=== PATIENT | male | born 1955 | race Caucasian/White ===

== ENCOUNTER 2017-12-07 14:32 | Emergency (ER) | payer OTHER ==
[2017-12-07 14:58] VITALS: BP 128/88; PULSE 75; RESP 18; TEMP 98
[2017-12-07] MEDS ORDERED: BACITRACIN 500 UNIT/GM OINT 28.4 GM TUBE TOPICAL ONE (16:22)
--- NOTE | 2017-12-07 16:50 | XR ---
EXAMINATION TYPE: XR shoulder complete 3 views RT, XR forearm 2 views RT, XR elbow complete 3 views R T DATE OF EXAM: 12/07/2017 COMPARISON: NONE HISTORY: 62-year-old male with pain after fall off ladder today FINDINGS: Right shoulder: Moderate degenerative joint space narrowing and marginal spurring at the acromial clavicular joint. T here is loss of the subacromial space with bony abutment of the humeral head with the undersurface of the acromion. Mild degenerative spurring at the glenohumeral joint. No acute fracture, subluxation, or dislocation seen. Right elbow: No elbow joint effusion. There is some posterior soft tissue swelling. 9 mm ossific density posterior olecranon. Otherwise, no acute fracture, subluxation, dislocation. Right forearm: No acute fracture of the more mid to distal radius or ulna. Wrist articulation appears grossly intact . There may be some dorsal sided soft tissue swelling. IMPRESSION: 1. Right shoulder: Moderate AC joint OA. Chronic full-thickness rotator cuff tear. No acute osseous a bnormality seen. 2. Right elbow: 9 mm bone fragment posterior elbow suspected to represent a chronically fragmented sp ur. Correlate for any pinpoint tenderness here to exclude an acutely fractured enthesophyte. No elbow joint effusion or other acute osseous abnormality seen. 3. Right forearm: No additional acute osseous abnormality seen.
[2017-12-07] MEDS ORDERED: DIPH,PERTUS(ACELL)TETVAC-LF 0.5 ML VIAL IM ONE (17:13)
--- NOTE | 2017-12-07 17:39 | ED ---
Fall HPI - General Chief Complaint: Fall Stated Complaint: [facility]HS/ Arm Injury Time Seen by Provider: 12/07/17 15:09 Source: patient Mode of arrival: ambulatory - History of Present Illness Initial Comments: This 62-year-old male with history of previous DVT who presents today for chief complaint of fall. Patient states that earlier today at work when he was coming down a ladder about 3 rungs the bottom when he misstepped and fell forward on the ladder hitting right forarm, he then fell to the ground onto this right area. He denies chest pain, dizziness, palpitation prior to the fall stating it was mechanical in nature. Pt immediately noticed a superficial laceration to the right ventral forearm as well as pain in the right shoulder, forearm and elbow. Pt ws told to present to the emergency department by his company. [employer]. Patient denies numbness, tingling, paresthesias of the upper extremities bilaterally, loss of sensation of the upper extremities bilaterally, loss of consciousness, trauma to the head or any other extremity, dislocation of right shoulder. In addition patient denies any recent fever, chills, shortness of breath, chest pain, back pain, abdominal pain , nausea or vomiting, numbness or tingling, dysuria or hematuria, constipation or diarrhea, headaches or visual changes, or any other complaints. Pt cannot recall last TDaP. - Related Data Home Medications Medication Instructions Recorded Confirmed No Known Home Medications 12/07/17 12/07/17 Allergies Allergy/AdvReac Type Severity Reaction Status Date / Time No Known Allergies Allergy Verified 12/07/17 15:09 Review of Systems ROS Statement: Those systems with pertinent positive or pertinent negative responses have been documented in the HPI. ROS Other: All systems not noted in ROS Statement are negative. Constitutional: Denies: fever, chills Eyes: Denies: eye pain ENT: Denies: ear pain, throat pain Respiratory: Denies: cough, dyspnea Cardiovascular: Denies: chest pain, palpitations, dyspnea on exertion Gastrointestinal: Denies: abdominal pain, nausea, vomiting, diarrhea, constipation Genitourinary: Denies: urgency, dysuria, frequency, hematuria Musculoskeletal: Denies: back pain, arthralgia Skin: Reports: as per HPI, lesions Neurological: Denies: headache Past Medical History Past Medical History: No Reported History History of Any Multi-Drug Resistant Organisms: None Reported Past Surgical History: Hernia Repair, Orthopedic Surgery Past Psychological History: No Psychological Hx Reported Smoking Status: Current every day smoker Past Alcohol Use History: Occasional Past Drug Use History: None Reported General Exam Limitations: no limitations Course Vital Signs 12/07/17 14:55 Temperature 98.0 F Pulse Rate 75 Respiratory 18 Rate Blood Pressure 128/88 O2 Sat by Pulse 94 L Oximetry Medical Decision Making - Medical Decision Making 62 yo male with past medical history of previous DVT who presents today for chief complaint of fall. Patient was at work earlier when he misstepped off a ladder 3 rungs from the bottom. Patient fell onto the ladder hitting his right forearm then fell onto the ground catch himself with his right forearm elbow and shoulder. Patient denies loss of consciousness or trauma to the head. X- rays of the right forearm elbow and shoulder were obtained revealing no acute injury, fracture or dislocation. His examination revealed no deformities of the overlying shoulder, elbow or forearm of the right UE. patient was able to fully range at the shoulder joint, elbow, wrist and hand of the right upper extremity. Patient had 5 out of 5 muscle strength of the upper shoulders bilaterally, equally and full sensation. There was pain to palpation over the AC joint of the shoulder, and pain to the right forarm. There is a 5cm superficial laceration to the ventral aspect of the right forearm. This was cleaned with sterile water, bacitracin was applied and it was covered with sterile gauze bandage. Pt received TDaP. Pt stated that he didnt need medication for pain. Case was discussed with Dr. Coombs in detail and pt was discharged with PCP follow-up in 1-2 days. Pt was discharged with ibuprofen 800mg for pain as needed for pain. Disposition Clinical Impression: Arthritis of shoulder region, right, degenerative, Right elbow pain, Right forearm pain Disposition: HOME SELF-CARE Condition: Good Instructions: Osteoarthritis (ED), Arthralgia (ED) Additional Instructions: Please use medication as discussed. Please follow-up with family doctor in the next 2 days of symptoms have not improved. Please return to emergency room if the symptoms increase or worsen or for any other concerns. Is patient prescribed a controlled substance at d/c from ED?: No Referrals: Ziyad Narayanan MD [Primary Care Provider] - 1-2 days Time of Disposition: 18:14
== END 2017-12-07 18:22 | disposition home or self-care (01) ==
LOC: EC 14:32
DX: S51.811A Laceration without foreign body of right forearm, initial encounter (principal); M19.011 Primary osteoarthritis, right shoulder; M25.521 Pain in right elbow; F17.200 Nicotine dependence, unspecified, uncomplicated; Z23 Encounter for immunization; Z98.890 Other specified postprocedural states; W11.XXXA Fall on and from ladder, initial encounter; Y92.69 Other specified industrial and construction area as the place of occurrence of the external cause; Y99.0 Civilian activity done for income or pay
CPT/HCPCS: 90471; 90715; 99283

== ENCOUNTER → 2021-07-31 | Outpatient (CLI) | payer BC ==
--- NOTE | 2021-07-31 21:26 | CTL ---
EXAMINATION TYPE: CT Low Dose Lung DATE OF EXAM ORDERED: 07/31/2021 HISTORY: Tobacco use. Lung cancer screening CT DLP: 147.[address] CTDI: 4.3 mGy Automated exposure control for dose reduction was used. SCREENING VISIT: Baseline COMPARISON: None available TECHNIQUE: Low dose computed tomography scan was performed through the chest at 1 mm thick sections a nd reconstructed images in multiple planes at 1 mm and [address] DIAGNOSTIC QUALITY: Satisfactory FINDINGS: LUNG NODULES: None. Right lung solid 7.[address] image 46. LUNGS: COPD: Severity: Mild Fibrosis: Severity: None Lymph nodes: None Other findings: Diffuse bronchial wall thickening which may suggest chronic bronchitis. Left upper lo be medial 2 mm calcified granuloma. RIGHT PLEURAL SPACE: Effusion: None Calcification: None Thickening: None Pneumothorax: None LEFT PLEURAL SPACE: Effusion: None Calcification: None Thickening: None Pneumothorax: None HEART: Heart Size: Normal Coronary Calcification: Mild to moderate Pericardial Effusion: None OTHER FINDINGS: Upper abdomen: None Bony thorax: None Supraclavicular region: None Other: Mild aortic atherosclerotic calcifications. IMPRESSION: Solid right lung 7.5 mm nodule as described above. CT LUNG RAD AND CT CHEST RECOMMENDATION: Lung-Rad 3 Probably Benign: 6 month follow-up LDCT. S Modifier (other clinically significant findings): None
== END | disposition home or self-care (01) ==
LOC: RADCTMAIN 17:22
PROVIDERS: ATTEND Family Medicine
DX: Z12.2 Encounter for screening for malignant neoplasm of respiratory organs (principal); R91.1 Solitary pulmonary nodule; Z87.891 Personal history of nicotine dependence
CPT/HCPCS: 71271

== ENCOUNTER → 2021-08-27 | Outpatient (CLI) | payer BC ==
--- NOTE | 2021-08-27 08:34 | US ---
EXAMINATION TYPE: US venous doppler duplex LE DATE OF EXAM: 08/27/2021 8:00 AM COMPARISON: NONE CLINICAL HISTORY: M79.89 SOFT TISSUE DISORDER. Pt states bilateral leg swelling, pt states history of DVT left leg- currently not on blood thinners SIDE PERFORMED: Bilateral TECHNIQUE: The lower extremity deep venous system is examined utilizing real time linear array sonog enrrique with graded compression, doppler sonography and color-flow sonography. VESSELS IMAGED: Common Femoral Vein Deep Femoral Vein Greater Saphenous Vein * Femoral Vein Popliteal Vein Small Saphenous Vein * Proximal Calf Veins (* superficial vessels) Right Leg: Negative for DVT Left Leg: Negative for acute DVT, low-level internal circumferential echo along the vein wall noted within the vein of the leg. Junction with the peripheral portion of the left popliteal vein, there is color flow, normal Doppler waveform IMPRESSION: No evident deep venous thrombosis within the right lower extremity from the level the kne e centrally. Venous wall thickening as described in the leg could be due to chronic deep venous throm bosis with recanalization. No acute deep venous thrombosis is suspected. Follow-up could be performed in 24 to 48 hours to assess for stability.
--- NOTE | 2021-08-27 12:00 | ECHOF ---
Referral Reason:M79.89 other specified soft tissue disorder MEASUREMENTS -------- HEIGHT: 180.3 cm WEIGHT: 133.8 kg BP: 141/82 RVIDd: 3.8 cm (< 3.3) IVSd: 1.6 cm (0.6 - 1.1) LVIDd: 5.0 cm (3.9 - 5.3) LVPWd: 1.4 cm (0.6 - 1.1) IVSs: 2.0 cm LVIDs: 3.5 cm LVPWs: 2.0 cm LA Diam: 3.5 cm (2.7 - 3.8) LAESV Index (A-L): 22.43 ml/m Ao Diam: 3.7 cm (2.0 - 3.7) AV Cusp: 2.6 cm (1.5 - 2.6) MV EXCURSION: 16.226 mm (> 18.000) MV EF SLOPE: 63 mm/s (70 - 150) EPSS: 2.1 cm MV E Dante: 0.78 m/s MV DecT: 275 ms MV A Dante: 1.08 m/s MV E/A Ratio: 0.72 RAP: 5.00 mmHg RVSP: 20.18 mmHg FINDINGS -------- Sinus rhythm. This was a technically adequate study. The left ventricular size is normal. There is moderate concentric left ventricular hypertrophy. O verall left ventricular systolic function is normal with, an EF between 55 - 60 %. The right ventricle is mild to moderately enlarged. Normal LA size by volume 22+/-6 ml/m2. The right atrium is normal in size. Interatrial and interventricular septum intact. The aortic valve is trileaflet, and appears structurally normal. No aortic stenosis or regurgitation. The mitral valve is normal. Mild tricuspid regurgitation present. Right ventricular systolic pressure is normal at < 35 mmHg. The pulmonic valve was not well visualized. The aortic root size is normal. IVC Not well visulized. There is no pericardial effusion. CONCLUSIONS -------- 1. The left ventricular size is normal. 2. There is moderate concentric left ventricular hypertrophy. 3. Overall left ventricular systolic function is normal with, an EF between 55 - 60 %. 4. The right ventricle is mild to moderately enlarged. 5. Normal LA size by volume 22+/-6 ml/m2. 6. Mild tricuspid regurgitation present. 7. There is no pericardial effusion. ROVING INSPECTOR: Codie Crane RDCS
== END | disposition home or self-care (01) ==
LOC: RADUSWWP 07:34
PROVIDERS: ATTEND Family Medicine
DX: I07.1 Rheumatic tricuspid insufficiency (principal); M79.89 Other specified soft tissue disorders; Z86.718 Personal history of other venous thrombosis and embolism
CPT/HCPCS: 93306; 93970

== ENCOUNTER → 2021-11-01 | Outpatient (CLI) | payer BC ==
[2021-11-01 23:23] LABS: African American GFR (CKD) 112.4 (60.0-200.0); Anion Gap 8.1 mmol/L (10.00-18.00); BUN/Creat Ratio 21.39 Ratio (12.00-20.00); Blood Urea Nitrogen 16.3 mg/dL (9.0-27.0); Calcium 8.9 mg/dL (8.7-10.3); Carbon Dioxide 26.3 mmol/L (20.0-27.5); Potassium 4.3 mmol/L (3.5-5.5)
== END | disposition home or self-care (01) ==
LOC: LABWHC1 14:41
PROVIDERS: ATTEND Internal Medicine Cardiovascular Disease
DX: R60.0 Localized edema (principal)
CPT/HCPCS: 36415; 80048; 83880

== ENCOUNTER → 2022-02-13 | Outpatient (CLI) | payer BC ==
--- NOTE | 2022-02-14 07:52 | CTL ---
EXAMINATION TYPE: CT Low Dose Lung DATE OF EXAM ORDERED: 02/13/2022 COMPARISON: 07/31/2021 HISTORY: . Low Dose CT Lung Screening CT DLP: 88.[address] CTDI: 2.6 mGy IV CONTRAST USED: None. SCREENING VISIT: Second visit COMPARISON: None. TECHNIQUE: Low dose computed tomography scan was performed through the chest at 1 millimeter thick se ctions and reconstructed images in the coronal plane at [address] DIAGNOSTIC QUALITY: Satisfactory FINDINGS: LUNG NODULES: 7 mm solid nodule right upper lobe adjacent to the cardiac border image 135 persists li eula reflects an area of parenchymal scarring rather than a distinct nodule. No additional nodules id entified. LUNGS: COPD: Severity: Mild Fibrosis: Severity:None Lymph nodes: None Other findings: None RIGHT PLEURAL SPACE: Effusion: None Calcification: None Thickening: None Pneumothorax: None LEFT PLEURAL SPACE: Effusion: None Calcification: None Thickening: None Pneumothorax: None HEART: Heart Size: Mildly enlarged Coronary calcification: Mild Pericardial effusion: None OTHER FINDINGS: Upper abdomen: No significant abnormality Bony thorax: Degenerative changes Supraclavicular region: No significant abnormalityOther: No significant abnormalityI IMPRESSION: Stable nodular density right upper lobe. FOLLOW UP CT CHEST RECOMMENDATION: Follow-up screening in one year CT LUNG RAD: LUNG RAD CATEGORY 2 benign appearance or behavior. Follow-up LD CT in one year.
== END | disposition home or self-care (01) ==
LOC: RADCTMAIN 16:14
PROVIDERS: ATTEND Family Medicine
DX: Z12.2 Encounter for screening for malignant neoplasm of respiratory organs (principal); R91.1 Solitary pulmonary nodule; Z87.891 Personal history of nicotine dependence
CPT/HCPCS: 71271

== ENCOUNTER → 2022-12-12 | Outpatient (CLI) | payer MEDICARE ==
--- NOTE | 2022-12-12 19:35 | CTL ---
EXAMINATION TYPE: CT Low Dose Lung DATE OF EXAM ORDERED: 12/12/2022 HISTORY: . Lung cancer screening CT DLP: 97.[address] CTDI: 2.6 mGy Automated exposure control for dose reduction was used. SCREENING VISIT: Subsequent COMPARISON: 02/13/2022 TECHNIQUE: Low dose computed tomography scan was performed through the chest at 1 mm thick sections a nd reconstructed images in the coronal plane at [address] DIAGNOSTIC QUALITY: Satisfactory FINDINGS: LUNG NODULES: Present, detailed below: 1. There is a pleural-based 1.1 cm density along the right cardiomediastinal margin. Series 4 image 1 43. This is stable with similar measurement locations. LUNGS: COPD: Severity: None Fibrosis: Severity: None Lymph nodes: None Other findings: None RIGHT PLEURAL SPACE: Effusion: None Calcification: None Thickening: None Pneumothorax: None LEFT PLEURAL SPACE: Effusion: None Calcification: None Thickening: None Pneumothorax: None HEART: Heart Size: Normal Coronary calcification: Mild Pericardial effusion: None OTHER FINDINGS: Upper abdomen: Normal Bony thorax: Normal Supraclavicular region: Normal Other: Ascending thoracic aorta at the level the main pulmonary artery measures 4.2 cm. The main pul monary artery at the bifurcation measures 2.7 cm. IMPRESSION: 1. Stable pleural-based density right mediastinal border. 2. Ascending thoracic aortic aneurysm 4.[address] CHEST RECOMMENDATION: Follow-up low-dose CT chest one year CT LUNG RAD: Lung-Rad 2 Benign Appearance or Behavior
== END | disposition home or self-care (01) ==
LOC: RADCTMAIN 11:06
PROVIDERS: ATTEND Family Medicine
DX: Z12.2 Encounter for screening for malignant neoplasm of respiratory organs (principal); F17.210 Nicotine dependence, cigarettes, uncomplicated; J98.4 Other disorders of lung; I71.21 Aneurysm of the ascending aorta, without rupture
CPT/HCPCS: 71271

== ENCOUNTER → 2024-10-04 | Outpatient (CLI) | payer MEDICARE ==
--- NOTE | 2024-10-05 07:21 | MR ---
EXAMINATION TYPE: MR cervical spine wo con DATE OF EXAM: 10/04/2024 2:17 PM COMPARISON: None. CLINICAL INDICATION: Male, 68 years old with history of M54.12 RADICULOPATHY; PHH, Ángel arm numbness, tingling in fingers, hx of neck injury TECHNIQUE: Multi planar, multi sequence imaging was performed utilizing: T1-weighted, T2-weighted, an d turbo inversion recovery imaging of the cervical spine. IV Contrast: mL (None, if empty) FINDINGS: Alignment: The cervical vertebral bodies have preserved heights. Alignment is within normal limits gi derek patient positioning. Bones: Scattered Modic endplate changes with osteophytes and disc space narrowing. Multilevel degener ative disc disease is noted and most pronounced at the C5-C6 vertebral levels. Reactive bony edema at the adjoining endplates of C5-C6. Cord: The spinal cord is unremarkable with regards to their signal intensity and morphology. Discs: Intervertebral disc signal is maintained. C2-C3: No significant disc pathology. The spinal canal is patent. Bilateral facet and uncovertebral joint arthropathy are present with mild bilateral neural foraminal stenosis. C3-C4: No significant disc pathology. The spinal canal is patent. Bilateral facet and uncovertebral joint arthropathy are present with mild bilateral neural foraminal stenosis. C4-C5: No significant disc pathology. The spinal canal is patent. Bilateral facet and uncovertebral joint arthropathy are present with moderate bilateral neural foraminal stenosis. C5-C6: A disc osteophyte complex is present with mild spinal canal stenosis. Bilateral facet and unc overtebral joint arthropathy are present with moderate bilateral neural foraminal stenosis. C6-C7: No significant disc pathology. The spinal canal is patent. No neural foraminal stenosis. C7-T1: No significant disc pathology. The spinal canal is patent. No neural foraminal stenosis. Other: None. IMPRESSION: 1. No evidence for disc herniation or significant spinal canal stenosis. 2. Moderate disc degeneration with associated osteoarthritic changes worse at C5-C6. No foraminal tan nosis worse at C5-C6 with at least moderate stenosis bilaterally. [facility], Workstation: 3, 10/05/2024 7:19 AM
== END | disposition home or self-care (01) ==
LOC: RADMRIMAIN 13:33
PROVIDERS: ATTEND Family Medicine
DX: M50.122 Cervical disc disorder at C5-C6 level with radiculopathy (principal); M47.22 Other spondylosis with radiculopathy, cervical region
CPT/HCPCS: 72141

== ENCOUNTER → 2024-10-04 | Outpatient (CLI) | payer MEDICARE ==
--- NOTE | 2024-10-04 11:25 | CTL ---
EXAMINATION TYPE: CT Low Dose Lung DATE OF EXAM: 10/04/2024 9:53 AM COMPARISON: 12/12/2022 CLINICAL INDICATION: Male, 68 years old with history of Z12.2, F17.210, lung CA screening, History of tobacco use. Current smoker with 51 pack-year history TECHNIQUE: Low dose computed tomography scan was performed through the chest at 1 mm thick sections a nd reconstructed images in multiple planes at 1 mm and [address] DLP: 163.3 mGycm, CT CTDI: 4.3 mGy, Automated exposure control for dose reduction was used. CT DIAGNOSTIC QUALITY: Satisfactory FINDINGS: Heart normal size without pericardial effusion. Proximal LAD coronary artery calcifications are prese nt. Mild aneurysm ascending aorta 4.1 cm, unchanged. Upper descending thoracic aorta is similar ectatic a t 3.5 cm. Minimal atherosclerotic arch calcifications. Conventional arch is a branching anatomy. Enlarged caliber main right and left pulmonary arteries up to 3.1 cm suggesting underlying pulmonary arterial hypertension. No thoracic lymphadenopathy by CT size criteria. There is moderate diffuse bronchial wall thickening. [id number] centrilobular emphysematous stanislaw nge No consolidation or pleural effusion. Stable minimal patchy atelectasis or scarring inferior lingula. Stable 7 mm subpleural nodular density medial right suprahilar region, axial image 101, probably ple ural parenchymal scarring. No suspicious pulmonary nodules seen. Visualized upper abdomen with redemonstration of a 2.9 cm cortical cyst lateral upper pole left kidne y and diffuse low-density thickening of the left adrenal gland. Bones: No osseous destructive process. IMPRESSION: 1. LungRADS 2, benign. Stable 7 mm subpleural nodularity medial right suprahilar region. 2. 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 Recommend smoking cessat ion. 3. Mild aneurysm ascending aorta 4.1 cm, unchanged. CT LUNG RAD AND CT CHEST RECOMMENDATION: Lung-Rad 2 Benign Appearance or Behavior: Continue annual sc reening with LDCT in 12 months. S Modifier (other clinically significant findings): None [facility], , 10/04/2024 11:23 AM
== END | disposition home or self-care (01) ==
LOC: RADCTMAIN 09:21
PROVIDERS: ATTEND Family Medicine
DX: Z12.2 Encounter for screening for malignant neoplasm of respiratory organs (principal); F17.210 Nicotine dependence, cigarettes, uncomplicated; J44.9 Chronic obstructive pulmonary disease, unspecified; J43.9 Emphysema, unspecified; I71.21 Aneurysm of the ascending aorta, without rupture; J98.4 Other disorders of lung
CPT/HCPCS: 71271